=== PATIENT | male | born 1975 | race African-American/Black ===

== ENCOUNTER → 2021-08-18 | Day surgery (SDC) | payer BC ==
[~2021-08-18] VITALS: Ht 170.2 cm; Wt 72.7 kg
[~2021-08-18] MED LIST: IV RINGERS,LACTATED 1000ML 1,000 ML IV SCH; PROPOFOL 10 MG/ML (20ML) VIAL. IV ONE
[2021-08-18 14:27] VITALS: BP 116/76
--- NOTE | 2021-08-18 15:21 | PDOC4 ---
PROCEDURE Procedure EGD/biopsies, colonoscopy/biopsies, snare polyp Indication: Dyspepsia/rectal bleeding. Meds: per anesthesia Findings: E--Grade A-B reflux at 40cm. G--Occasionally patulous GEJ, not a HH. Prepyloric erythema, biopsied. D--Normal to second portion. CALLIE--normal --'Scope advanced to TI. Prep adequate. Mucosa normal colon and TI. 2mm polyp, cecum, biopsied off. 8mm semipedunculated polyp, proximal ascending removed with cold snare/recovered. Internal hemorrhoids on retroflex. Otherwise normal. Edison. well. IMP: GERD Antral erythema, biopsied. Colon polyps Internal hemorrhoids. REC: Resume home meds, diet. Omeprazole 40mg daily. Await path. F/u with me in 2 weeks. DENNIS GARCIA MD Aug 18, 2021 15:21
[2021-08-18 15:30] VITALS: BP 111/83
--- NOTE | 2021-08-20 18:31 | PATHOLOGY ---
[facility] Accession Number: [id number] . 01 Material submitted: . PART A: stomach - ANTRUM BIOPSY PART B: cecum - CECAL POLYP BIOPSY PART C: colon - PROXIMAL ASCENDING POLYPECTOMY. Modifiers: proximal, ascending . 01 Clinical history: . DYSPEPSIA, RECTAL BLEED . 02 Diagnosis: A. Gastric biopsies, antrum: - Active chronic gastritis, moderate, with numerous Helicobacter organisms identified. . B. Colon biopsy, cecal polyp: - Prominent mucosal fold. . C. Colonic mucosa, ascending colon polypectomy: - Tubular adenoma. (JPM:homar; 08/20/2021) [facility] [place] 08/20/2021 1053 Local . 02 Comment: Sections of the gastric antral biopsy show congestion and moderate active chronic inflammation. A properly controlled immunoperoxidase stain for Helicobacter reveals numerous Helicobacter organisms. . Sections of the cecal biopsy reveal segments of colonic mucosa consistent with prominent mucosal fold. There are no adenomatous changes or evidence of malignancy. . Sections of the proximal ascending colon polypectomy reveal a tubular adenoma showing no high grade dysplasia or evidence of malignancy. (JPM:homar; 08/20/2021) . Special stain performed: Immunoperoxidase stain for Helicobacter on A1 . 02 Electronically signed: . Bao Martinez MD, Pathologist NPI- [id number] . 01 Gross description: . A. The specimen is received in formalin, labeled "Gardner, Jewel, antrum bx" and consists of 2 briones irregular tissues aggregating 0.5 x 0.3 x 0.1 cm which are submitted in toto in A1. . B. The specimen is received in formalin, labeled "Gardner, Jewel, cecal polyp bx" and consists of a briones irregular tissue measuring 0.6 x 0.4 x 0.2 cm which is submitted in toto in B1. . C. The specimen is received in formalin, labeled "Gardner, Jewel, proximal ascending polypectomy" and consists of a brown-briones polypoid tissue measuring 1.3 x 0.6 x 0.4 cm. The surgical margin is inked green. The specimen is serially sectioned and submitted entirely in C1. (ATMAUTLUAK; 08/19/2021) DKA/DKA 08/19/2021 1806 Local . 02 Pathologist provided ICD-10: K29.50, B96.81, D12.2 . 02 CPT . 806516, 825585, 585152, [id number] Specimen Comment: A courtesy copy of this report has been sent to [phone] Specimen Comment: Report sent to Specimen Comment: A duplicate report has been generated due to demographic updates. Performed at: 01 [facility] [address], [place] [id number] MD Amish Mckeon MD Phone: [phone] Performed at: 02 [facility] [address] [place], [place] [id number] MD Bao Martinez MD Phone: [phone]
== END | disposition home or self-care (01) ==
LOC: SURG 14:02
PROVIDERS: ATTEND Internal Medicine Gastroenterology
DX: K62.5 Hemorrhage of anus and rectum (principal); R10.13 Epigastric pain; D12.2 Benign neoplasm of ascending colon; K29.50 Unspecified chronic gastritis without bleeding; B96.81 Helicobacter pylori [H. pylori] as the cause of diseases classified elsewhere; K21.00 Gastro-esophageal reflux disease with esophagitis, without bleeding; K64.0 First degree hemorrhoids; K63.89 Other specified diseases of intestine; K31.89 Other diseases of stomach and duodenum; Z87.891 Personal history of nicotine dependence; Z79.899 Other long term (current) drug therapy; Z98.890 Other specified postprocedural states
CPT/HCPCS: 43239; 45380; 45385; J2704; 88305; 88342